=== PATIENT | female | born 1960 | race Caucasian/White ===

== ENCOUNTER 2018-11-25 07:28 | Outpatient (CLI) | payer MEDICARE, MEDICAID | END 2018-11-25 07:29 | disposition home or self-care (01) | LOC: C.VASC 07:28 ==

== ENCOUNTER 2018-11-30 11:52 | Outpatient (CLI) | payer MEDICARE, MEDICAID | END 2018-11-30 11:53 | disposition home or self-care (01) | LOC: C.PAT 11:52 | DX: I73.9 Peripheral vascular disease, unspecified (principal) ==

== ENCOUNTER → 2018-12-08 | Day surgery (SDC) | payer MEDICARE, MEDICAID ==
[2018-11-30 12:22] VITALS: BMI 37.1
[~2018-12-08] MED LIST: Enalaprilat 2.5 MG/2 ML ONE; Iodixanol 320 MG/ML 100 ML BOTTLE IV ONE; Iodixanol 320 MG/ML 200 ML BOTTLE IV ONE; Labetalol 5mg/ml (4ml) ONE; Lidocaine 2% MPF (5 ml) Inj ONE; Midazolam 2 MG/2 ML VIAL ONE; Propofol 10 mg/ml Inj (20 ML) ONE
--- NOTE | 2018-12-08 15:58 | PCM.SURG1 ---
Surgeon's Initial Post Op Note - Surgeon's Notes Surgeon: dante Christmas Tree Farmer: 0 Type of Anesthesia: IV Sedation Anesthesia Administered By: geovanna Pre-Operative Diagnosis: pvd right sfa occlusion Operative Findings: proximal right sfa occlusion. patent sfa stent. left sfa occlusion reconsitiutes at [facility] Post-Operative Diagnosis: same Operation Performed: aortofemoral angiogram via left groin. selective catherization of right femoral artery. pathway atherectomy of proximal right sfa. zilver proximal 6mm stent r sfa. perclose left groin Specimen/Specimens Removed: 0 Estimated Blood Loss: EBL {In ML}: 25 Blood Products Given: N/A Drains Used: No Drains Post-Op Condition: Good Date of Surgery/Procedure: 12/08/18 Time of Surgery/Procedure: 16:03
--- NOTE | 2018-12-09 08:44 | VAS ---
DATE: 12/08/2018 PREOPERATIVE DIAGNOSES: Ischemic ulceration, right leg and right superficial femoral artery occlusion. PROCEDURES CARRIED OUT: Aortofemoral angiogram via left groin with selective catheterization of right femoral artery, pathway arthrectomy of the right superficial femoral artery, balloon angioplasty and deployment of a 6-mm Zilver stent in the proximal right superficial femoral artery. SURGEON: Ariel Barron Jr., MD ASSISTANTS: None. ANESTHESIOLOGIST: Flavio Garnica CRNA INDICATIONS: The patient is a 58-year-old woman with a history of peripheral vascular disease, with variety of medical problems, who presents with recurrent symptoms in both legs. Preoperative imaging suggested that there was a proximal right SFA stenosis occlusion, and on the left side, there was an occlusion into the proximal portion of the superficial femoral artery. OPERATIVE FINDINGS: The aorta, renal arteries, iliac arteries, common iliac arteries, internal iliac arteries, and external iliac arteries were widely patent. The common femoral artery on the right side was widely patent with well-developed bundle branches. Below this proximal portion from this origin was occluded of the superficial femoral artery and reconstituted distally. Approximately 4 inches below this. Below this, there was a previously placed stent which was somewhat occluded and appeared to be fractured. Below this, there was three-vessel runoff. On the left side, there was a fresh occlusion of the left superficial femoral artery with reconstitution above Go's canal. Below this, the runoff was poorly visualized despite multiple injections done on that side. We abandoned further continued imaging of lower vessels in the leg, but they appeared to be tibial vessels that are patent. Subsequently to the performance of diagnostic arteriogram, a stiff-angled Glidewire was advanced over the aortic bifurcation, and a 7-[place] sheath was positioned in the distal portion of the common femoral artery. Using road mapping techniques, the variety of wires were able to cross this. Down through the previously placed stents which were very warped at the superficial femoral artery. We then carried out a pathway atherectomy after deploying a filter wire and giving heparin. After having completed this, we then ballooned this with a 5-mm balloon and then deployed a 6-mm Zilver stent. The final cosmetic result was excellent. We also ballooned distally in the area of the previous stent, and there was a brisk flow through this area without any evidence of recurrent or residual stenosis or fractures, etc. Below this, there was excellent runoff of three vessels. We then deployed a Perclose device in the left groin OPERATION CARRIED OUT: Aortofemoral angiogram via left groin with selective catheterization of right femoral artery, pathway atherectomy and balloon angioplasty of the right superficial femoral artery, deployment of the 6-mm Zilver stent of the proximal femoral artery, and Perclose deployment to left groin. Ariel Barron Jr., MD
== END | disposition home or self-care (01) ==
LOC: C.SPRAD 10:06
PROVIDERS: ATTEND Surgery Vascular Surgery
DX: E11.51 Type 2 diabetes mellitus with diabetic peripheral angiopathy without gangrene (principal); I70.238 Atherosclerosis of native arteries of right leg with ulceration of other part of lower leg
CPT/HCPCS: 36247; 37227; 75625; 75716; 75774; 76937; 82948; C1724; C1725; C1760; C1766; C1769; C1876; C1884; C1887; C1894; J0690; J1644; J2001; J2250; J2704; J3010; Q9966; Q9967